=== PATIENT | female | born 1955 | race Caucasian/White ===

== ENCOUNTER → 2020-08-25 | Outpatient (CLI) | payer OTHER | LOC: ECHO 10:23 | DX: I08.1 Rheumatic disorders of both mitral and tricuspid valves (principal) | CPT/HCPCS: ECHO; 93306 ==

== ENCOUNTER → 2021-03-08 | Day surgery (SDC) | payer OTHER ==
[~2021-03-08] MED LIST: ALL DAY ALLERGY10 M2 PO; ASPIRIN81 MG PO; BENICAR HCT 401 EACH PO; CITRACAL + D31 EACH PO; DIFLUCAN150 MG PO; DITROPAN XL5 MG PO; ISOSORBIDE MONO30 MG PO; LIPITOR TAB 1010 MG PO; METOPROLOL TART25 MG PO; NAPROSYN500 MG PO; NORFLEX 100 MG100 MG PO; NORVASC5 MG PO; PREMARIN0.625 MG PO; UREX1 GM GT; VITAMIN C 500500 MG PO
== END | disposition home or self-care (01) ==
LOC: OR 05:09
DX: Z12.11 Encounter for screening for malignant neoplasm of colon (principal); E78.5 Hyperlipidemia, unspecified; I10 Essential (primary) hypertension; R73.03 Prediabetes; Z88.8 Allergy status to other drugs, medicaments and biological substances; Z90.710 Acquired absence of both cervix and uterus; Z20.822 Contact with and (suspected) exposure to COVID-19
CPT/HCPCS: J2001; J2704; J7030